=== PATIENT | female | born 1990 | race Caucasian/White ===

== ENCOUNTER 2016-11-14 11:30 | Emergency (ER) | payer BC ==
[~2016-11-14] VITALS: Ht 170.2 cm; Wt 81.8 kg
[2016-11-14 13:41] VITALS: BP 122/72
== END 2016-11-14 13:47 | disposition home or self-care (01) ==
LOC: ED 11:30
DX: J36 Peritonsillar abscess (principal); R59.0 Localized enlarged lymph nodes
CPT/HCPCS: J1885; J3490; J7120; Q9967